=== PATIENT | female | born 1935 | race Caucasian/White ===

== ENCOUNTER 2020-05-22 13:29 | Inpatient (IN) ==
[2020-05-22] MEDS ORDERED: Ondansetron 4 MG/2 ML VIAL IVP PRN (17:02)
[2020-05-22] MEDS ORDERED: Ondansetron 4 MG/2 ML VIAL IVP STA (17:02)
[2020-05-22] MEDS ORDERED: Ondansetron 4 MG/2 ML VIAL ONE (17:04)
[2020-05-22] MEDS ORDERED: Famotidine 20 MG/2 ML VIAL IVP ONE (17:16)
[2020-05-22] MEDS ORDERED: methylPREDNISolone 125 MG/2 ML VIAL IVP ONE (17:17)
[2020-05-22] MEDS ORDERED: Dextrose Gel 15 GM/37.5 ML TUBE PO PRN ×2 (17:19)
[2020-05-22] MEDS ORDERED: D5% in Water 1,000 ML IVC PRN (17:19)
[2020-05-22] MEDS ORDERED: *HR* Dextrose 50 % in Water (Vial) 50 ML VIAL IVP PRN (17:19)
[2020-05-22] MEDS ORDERED: Naloxone 0.4 MG/ML INJ IVP PRN (17:52)
[2020-05-22] MEDS ORDERED: Prochlorperazine 10 MG/2 ML VIAL IVP ONE (17:52)
[2020-05-22] MEDS ORDERED: MethylPREDNISolone 40 MG/ML VIAL IVP SCH (18:00)
[2020-05-22] MEDS: Pantoprazole 40 MG VIAL IVP SCH (18:40)
[2020-05-22 18:41] LABS: Albumin 3.7 g/dL (3.5-5.7); Bilirubin,Total 1.2 mg/dL (0.3-1.0); Potassium 5.6 mEq/L (3.5-5.1); Troponin I 0.13 ng/mL (< 0.04)
[2020-05-22 18:54] LABS: Albumin/Globulin Ratio 1.1 (1.1-2.2); Bilirubin,Direct 0.5 mg/dL (0.0-0.2); Bilirubin,Indirect 0.7 mg/dL (0.0-1.0); Globulin 3.4 g/dL (2.4-3.5); Total Protein 7.1 g/dL (6.4-8.9)
[2020-05-22] MEDS ORDERED: Perflutren Lipid Microsphere 1.3 ML in 0.9 % Sodium Chloride 8.7 ML IVP PRN (19:44)
[2020-05-22] MEDS: Piperacillin/Tazobactam 3.375 GM in 0.9 % Sodium Chloride Mini Bag 100 ML IVPB SCH (20:01)
[2020-05-22 20:28] LABS: Basophils % 0.2 %; Hemoglobin 12.1 g/dL (11.5-15.4); Immature Granulocytes % 0.5 % (0-4); Lymphocytes # 0.6 K/mcL (0.6-4.6); Lymphocytes % 10.3 %; Mean Corpuscular HGB Conc 30.3 g/dL (31.6-35.5); Mean Corpuscular Hemoglobin 29.6 pg (28.0-33.3); Mean Corpuscular Volume 97.8 fL (83.0-100.0); Monocytes % 0.5 %; Neutrophils # 5.2 K/mcL (1.6-8.9); Nucleated Red Blood Cells 0.5 /100 WBC (0); Platelet Count 150 K/mcL (140-400); Red Blood Count 4.09 M/mcL (3.82-4.97); Red Cell Distribution Width 16.7 % (11.5-14.5); Segmented Neutrophils % 88.5 %; White Blood Count 5.9 K/mcL (4.3-11.1)
[2020-05-22 20:32] LABS: INR 1.5; Prothrombin Time 16.7 Seconds (9.4-12.1)
[2020-05-22] MEDS: Ipratropium/Albuterol Neb 3 ML IH SCH ×2 (20:39→23:08)
[2020-05-22 20:43] LABS: C-Reactive Protein 8 mg/L (Less than 10)
[2020-05-22] MEDS: Insulin LISPRO 300 UNITS/3 ML VIAL SUBQ SCH (20:52)
[2020-05-22 21:38] LABS: Lipase 15 Units/L (11-82)
[2020-05-23 00:58] LABS: Basophils % 0.2 %; Hematocrit 37.4 % (35.3-44.9); Hemoglobin 11.4 g/dL (11.5-15.4); Immature Granulocytes % 0.5 % (0-4); Lymphocytes # 0.7 K/mcL (0.6-4.6); Lymphocytes % 11.8 %; Mean Corpuscular HGB Conc 30.5 g/dL (31.6-35.5); Mean Corpuscular Hemoglobin 29.4 pg (28.0-33.3); Mean Corpuscular Volume 96.4 fL (83.0-100.0); Mean Platelet Volume 12.5 fL (9.4-12.4); Monocytes # 0.1 K/mcL (0.0-1.3); Monocytes % 1.3 %; Neutrophils # 4.8 K/mcL (1.6-8.9); Nucleated Red Blood Cells 0.5 /100 WBC (0); Platelet Count 196 K/mcL (140-400); Red Blood Count 3.88 M/mcL (3.82-4.97); Red Cell Distribution Width 16.7 % (11.5-14.5); Segmented Neutrophils % 86.2 %; White Blood Count 5.6 K/mcL (4.3-11.1)
[2020-05-23 01:01] LABS: INR 1.5; Prothrombin Time 17.5 Seconds (9.4-12.1)
[2020-05-23 01:16] LABS: Calcium 9.1 mg/dL (8.6-10.3); Potassium 5.6 mEq/L (3.5-5.1)
[2020-05-23 01:20] LABS: Bacteria,Urine Few per hpf (None-Few); Bilirubin,Urine Negative (Negative); Blood,Urine Small (Negative); Clarity,Urine Turbid (Clear); Color,Urine Yellow (Yellow); Glucose,Urine (UA) Normal (Normal); Hyaline Casts,Urine Many per lpf (None Seen); Ketones,Urine Negative (Negative); Leukocyte Esterase,Urine Negative (Negative); Mucus,Urine Few per lpf (None-Few); Nitrite,Urine Negative (Negative); PH,Urine 5.5 pH Units (5.0-8.0); Protein,Urine 70 mg/dL (Neg-Trace); RBC,Urine 15-30 per hpf (0-3); Specific Gravity,Urine 1.018 (1.010-1.025); Squamous Epithelial Cell,Urine Moderate per hpf (None-Few); Urobilinogen,Urine Normal (Normal)
[2020-05-23 01:26] LABS: Protein/Creatinine Ratio,Urine 1.07 mg/mg (0.00-0.20); Sodium, Urine 10.6 mEq/L
[2020-05-23] MEDS: Insulin LISPRO 300 UNITS/3 ML VIAL SUBQ SCH ×6 (02:15→22:27)
[2020-05-23] MEDS: Piperacillin/Tazobactam 3.375 GM in 0.9 % Sodium Chloride Mini Bag 100 ML IVPB SCH ×3 (02:15→22:36)
[2020-05-23] MEDS: Ipratropium/Albuterol Neb 3 ML IH SCH ×6 (03:46→23:36)
[2020-05-23] MEDS: MethylPREDNISolone 40 MG/ML VIAL IVP SCH ×2 (05:10→18:01)
[2020-05-23] MEDS: Pantoprazole 40 MG VIAL IVP SCH (07:43)
[2020-05-23 10:27] LABS: ABG Base Excess -5 mEq/L (-2 to 3); ABG HCO3 22 mEq/L (21-27); ABG Oxygen Saturation 95 % (95-98); ABG PCO2 49 mmHg (35-45); ABG PH 7.26 pH Units (7.32-7.45); ABG PO2 88 mmHg (85-104); ABG TCO2 24 mEq/L (20-26)
[2020-05-23 11:31] LABS: Uric Acid 11.6 mg/dL (2.3-7.6)
[2020-05-23 11:59] LABS: Hepatitis B Surface Antigen Nonreactive (Nonreactive)
[2020-05-23 12:28] LABS: Hepatitis C Virus Antibody Nonreactive (Nonreactive)
[2020-05-23 12:30] LABS: Hepatitis A Antibody IgM Nonreactive (Nonreactive); Hepatitis B Core IgM Nonreactive (Nonreactive)
[2020-05-23] MEDS ORDERED: *HR* Heparin 5,000 UNIT/ML VIAL IVP ONE (14:55)
[2020-05-23] MEDS ORDERED: *HR* Heparin 5,000 UNIT/ML VIAL IVP PRN ×2 (14:55)
[2020-05-23] MEDS: Heparin 25,000UNIT/250ML 1/2NS 25,000 UNIT/250 ML IV.SOLN IVC SCH (15:56)
[2020-05-23 16:25] LABS: Heparin anti-factor XA UFH 0.7 IU/mL (0.30-0.70); INR 1.4; Prothrombin Time 16.5 Seconds (9.4-12.1)
[2020-05-23 17:34] LABS: Hematocrit 33.9 % (35.3-44.9); Hemoglobin 10.8 g/dL (11.5-15.4); Mean Corpuscular HGB Conc 31.9 g/dL (31.6-35.5); Mean Corpuscular Hemoglobin 29.9 pg (28.0-33.3); Mean Corpuscular Volume 93.9 fL (83.0-100.0); Mean Platelet Volume 12.1 fL (9.4-12.4); Platelet Count 166 K/mcL (140-400); Red Blood Count 3.61 M/mcL (3.82-4.97); Red Cell Distribution Width 16.1 % (11.5-14.5); White Blood Count 19.1 K/mcL (4.3-11.1)
[2020-05-23 17:52] LABS: Lactate Dehydrogenase 209 Units/L (140-271); Total Protein 6.5 g/dL (6.4-8.9)
[2020-05-23] MEDS: Norepinephrine 4 MG/254 ML IV.SOLN IVC SCH (18:00)
[2020-05-23 18:39] LABS: Appearance of Pleural Fl Clear (Clear)
[2020-05-23 18:46] LABS: RBC,Pleural Fluid < 2000 RBC/mcL
[2020-05-23 19:11] LABS: Total Protein,Pleural Fluid 2.2 g/dL
[2020-05-23 20:38] LABS: Basophils,Pleural Fluid 0 %; Eosinophils,Pleural Fluid 0 %; Monocytes,Pleural Fluid 0 %
[2020-05-23 22:22] LABS: ABG Base Excess -6 mEq/L (-2 to 3); ABG HCO3 19 mEq/L (21-27); ABG Oxygen Saturation 99 % (95-98); ABG PCO2 36 mmHg (35-45); ABG PH 7.34 pH Units (7.32-7.45); ABG PO2 121 mmHg (85-104); ABG TCO2 20 mEq/L (20-26); Blood Gas Modality OXY MASK
[2020-05-23 23:29] LABS: Calcium 8.8 mg/dL (8.6-10.3); Potassium 6.2 mEq/L (3.5-5.1)
[2020-05-24] MEDS ORDERED: Albumin Human 5% 12.5 GM/250 ML IV.SOLN IVPB ONE (00:07)
[2020-05-24] MEDS: Insulin LISPRO 300 UNITS/3 ML VIAL SUBQ SCH ×6 (00:58→20:28)
[2020-05-24] MEDS: Norepinephrine 4 MG/254 ML IV.SOLN IVC SCH ×2 (01:26→07:27)
[2020-05-24] MEDS ORDERED: Furosemide 40 MG/4 ML VIAL IVP ONE (02:51)
[2020-05-24] MEDS: MethylPREDNISolone 40 MG/ML VIAL IVP SCH ×2 (03:44→17:02)
[2020-05-24] MEDS: Ipratropium/Albuterol Neb 3 ML IH SCH ×6 (03:48→23:23)
[2020-05-24 06:16] LABS: Basophils % 0.1 %; Hematocrit 31.6 % (35.3-44.9); Hemoglobin 10.2 g/dL (11.5-15.4); Immature Granulocytes % 0.4 % (0-4); Lymphocytes # 0.9 K/mcL (0.6-4.6); Lymphocytes % 5.6 %; Mean Corpuscular HGB Conc 32.3 g/dL (31.6-35.5); Mean Corpuscular Hemoglobin 29.7 pg (28.0-33.3); Mean Corpuscular Volume 92.1 fL (83.0-100.0); Mean Platelet Volume 12.2 fL (9.4-12.4); Monocytes # 0.7 K/mcL (0.0-1.3); Monocytes % 3.9 %; Neutrophils # 14.8 K/mcL (1.6-8.9); Nucleated Red Blood Cells 0.2 /100 WBC (0); Platelet Count 168 K/mcL (140-400); Red Blood Count 3.43 M/mcL (3.82-4.97); Red Cell Distribution Width 16.2 % (11.5-14.5); White Blood Count 16.5 K/mcL (4.3-11.1)
[2020-05-24 06:34] LABS: Calcium 8.8 mg/dL (8.6-10.3); Potassium 6.1 mEq/L (3.5-5.1)
[2020-05-24] MEDS: Piperacillin/Tazobactam 3.375 GM in 0.9 % Sodium Chloride Mini Bag 100 ML IVPB SCH ×2 (07:33→20:21)
[2020-05-24] MEDS: Pantoprazole 40 MG VIAL IVP SCH (07:33)
[2020-05-24] MEDS: Heparin 25,000UNIT/250ML 1/2NS 25,000 UNIT/250 ML IV.SOLN IVC SCH (07:41)
[2020-05-24] MEDS: Albumin Human 5% 12.5 GM/250 ML IV.SOLN IVC SCH ×2 (11:22→14:01)
[2020-05-24] MEDS ORDERED: Lidocaine -MPF 1% 5 ML AMPUL INFILT ONE (11:46)
[2020-05-24] MEDS: SODIUM ZIRCONIUM CYCLOSILICATE 5 GM POWD.PACK PO SCH (16:52)
[2020-05-25] MEDS: Insulin LISPRO 300 UNITS/3 ML VIAL SUBQ SCH ×7 (00:58→22:50)
[2020-05-25 03:39] LABS: Hematocrit 30.6 % (35.3-44.9); Hemoglobin 9.9 g/dL (11.5-15.4); Immature Granulocytes % 0.4 % (0-4); Lymphocytes # 0.7 K/mcL (0.6-4.6); Lymphocytes % 6.7 %; Mean Corpuscular HGB Conc 32.4 g/dL (31.6-35.5); Mean Corpuscular Hemoglobin 29.7 pg (28.0-33.3); Mean Corpuscular Volume 91.9 fL (83.0-100.0); Mean Platelet Volume 12.7 fL (9.4-12.4); Monocytes # 0.4 K/mcL (0.0-1.3); Monocytes % 4.3 %; Neutrophils # 8.9 K/mcL (1.6-8.9); Nucleated Red Blood Cells 0.2 /100 WBC (0); Platelet Count 113 K/mcL (140-400); Red Blood Count 3.33 M/mcL (3.82-4.97); Red Cell Distribution Width 16.5 % (11.5-14.5); Segmented Neutrophils % 88.6 %; White Blood Count 10.1 K/mcL (4.3-11.1)
[2020-05-25] MEDS: Ipratropium/Albuterol Neb 3 ML IH SCH ×6 (03:45→23:12)
[2020-05-25 04:00] LABS: Calcium 8.9 mg/dL (8.6-10.3); Potassium 5.8 mEq/L (3.5-5.1)
[2020-05-25 04:15] LABS: Troponin I 0.17 ng/mL (< 0.04)
[2020-05-25] MEDS: MethylPREDNISolone 40 MG/ML VIAL IVP SCH (05:22)
[2020-05-25] MEDS: SODIUM ZIRCONIUM CYCLOSILICATE 5 GM POWD.PACK PO SCH (08:20)
[2020-05-25] MEDS: Pantoprazole 40 MG VIAL IVP SCH (08:21)
[2020-05-25] MEDS: Apixaban 2.5 MG TABLET PO SCH (17:50)
[2020-05-25] MEDS ORDERED: *HR* Heparin 5,000 UNIT/ML VIAL SQ SCH (22:00)
[2020-05-26] MEDS: Insulin LISPRO 300 UNITS/3 ML VIAL SUBQ SCH ×5 (03:18→14:59)
[2020-05-26] MEDS: Ipratropium/Albuterol Neb 3 ML IH SCH ×6 (03:39→23:44)
[2020-05-26] MEDS: Apixaban 2.5 MG TABLET PO SCH (05:15)
[2020-05-26 09:03] LABS: Potassium 5.4 mEq/L (3.5-5.1)
[2020-05-26] MEDS: Pantoprazole 40 MG VIAL IVP SCH (09:18)
[2020-05-26] MEDS: SODIUM ZIRCONIUM CYCLOSILICATE 5 GM POWD.PACK PO SCH (09:19)
[2020-05-26 16:41] LABS: Basophils % 0.1 %; Hematocrit 31.6 % (35.3-44.9); Immature Granulocytes % 0.4 % (0-4); Lymphocytes # 0.9 K/mcL (0.6-4.6); Lymphocytes % 6.1 %; Mean Corpuscular HGB Conc 31.6 g/dL (31.6-35.5); Mean Corpuscular Hemoglobin 29.2 pg (28.0-33.3); Mean Corpuscular Volume 92.4 fL (83.0-100.0); Mean Platelet Volume 12.2 fL (9.4-12.4); Monocytes # 1.2 K/mcL (0.0-1.3); Monocytes % 8.1 %; Neutrophils # 12.1 K/mcL (1.6-8.9); Nucleated Red Blood Cells 0.5 /100 WBC (0); Platelet Count 112 K/mcL (140-400); Red Blood Count 3.42 M/mcL (3.82-4.97); Red Cell Distribution Width 16.5 % (11.5-14.5); Segmented Neutrophils % 85.3 %; White Blood Count 14.2 K/mcL (4.3-11.1)
[2020-05-26] MEDS ORDERED: Morphine Sulfate Oral CONC 10 MG/0.5 ML ORAL.SYG SL PRN (16:41)
[2020-05-26] MEDS ORDERED: 0.9 % Sodium Chloride 250 ML ONE (17:40)
[2020-05-27] MEDS: Insulin LISPRO 300 UNITS/3 ML VIAL SUBQ SCH ×5 (00:42→17:29)
[2020-05-27] MEDS: Ipratropium/Albuterol Neb 3 ML IH SCH ×6 (03:15→23:45)
[2020-05-27 06:31] LABS: Basophils % 0.1 %; Eosinophils % 0.2 %; Hematocrit 31.8 % (35.3-44.9); Hemoglobin 10.3 g/dL (11.5-15.4); Immature Granulocytes % 0.4 % (0-4); Lymphocytes % 7.8 %; Mean Corpuscular HGB Conc 32.4 g/dL (31.6-35.5); Mean Corpuscular Hemoglobin 29.7 pg (28.0-33.3); Mean Corpuscular Volume 91.6 fL (83.0-100.0); Mean Platelet Volume 12.5 fL (9.4-12.4); Monocytes % 7.7 %; Neutrophils # 10.6 K/mcL (1.6-8.9); Nucleated Red Blood Cells 0.5 /100 WBC (0); Platelet Count 102 K/mcL (140-400); Red Blood Count 3.47 M/mcL (3.82-4.97); Red Cell Distribution Width 16.3 % (11.5-14.5); Segmented Neutrophils % 83.8 %; White Blood Count 12.7 K/mcL (4.3-11.1)
[2020-05-27 06:34] LABS: Calcium 8.4 mg/dL (8.6-10.3)
[2020-05-27] MEDS: Apixaban 2.5 MG TABLET PO SCH ×3 (06:50→17:30)
[2020-05-27] MEDS: Pantoprazole 40 MG VIAL IVP SCH (09:08)
[2020-05-27] MEDS: SODIUM ZIRCONIUM CYCLOSILICATE 5 GM POWD.PACK PO SCH (09:08)
[2020-05-28 03:26] LABS: Blood Urea Nitrogen > 130 mg/dL (8-23); Calcium 8.3 mg/dL (8.6-10.3); Carbon Dioxide 20 mEq/L (23-29); Chloride 94 mEq/L (98-107); Glucose 214 mg/dL (70-105); Potassium 4.9 mEq/L (3.5-5.1); Sodium 128 mEq/L (136-145); eGFR For African Americans 12 (> 60); eGFR For Non-African Americans 10 (> 60)
[2020-05-28] MEDS: Ipratropium/Albuterol Neb 3 ML IH SCH ×6 (03:44→23:40)
[2020-05-28] MEDS: Apixaban 2.5 MG TABLET PO SCH ×2 (05:09→17:07)
[2020-05-28] MEDS: SODIUM ZIRCONIUM CYCLOSILICATE 5 GM POWD.PACK PO SCH (08:01)
[2020-05-29 03:38] LABS: VBG HCO3 21 mEq/L (21-27); VBG PCO2 48 mmHg (41-51); VBG PH 7.25 pH Units (7.32-7.42); VBG PO2 104 mmHg (25-50)
[2020-05-29] MEDS: Ipratropium/Albuterol Neb 3 ML IH SCH ×4 (03:49→15:30)
[2020-05-29 03:59] LABS: Magnesium 2.9 mg/dL (1.6-2.6); Phosphorous 8.1 mg/dL (2.7-4.5)
[2020-05-29 04:00] LABS: Blood Urea Nitrogen > 130 mg/dL (8-23); Calcium 8.1 mg/dL (8.6-10.3); Carbon Dioxide 19 mEq/L (23-29); Chloride 95 mEq/L (98-107); Glucose 289 mg/dL (70-105); Sodium 129 mEq/L (136-145); eGFR For African Americans 10 (> 60); eGFR For Non-African Americans 8 (> 60)
[2020-05-29] MEDS: Apixaban 2.5 MG TABLET PO SCH (05:45)
[2020-05-29] MEDS: SODIUM ZIRCONIUM CYCLOSILICATE 5 GM POWD.PACK PO SCH (08:46)
[2020-05-29 15:41] VITALS: BP 101/52
== END 2020-05-29 15:34 | disposition hospice, inpatient (51) | DRG 291 ==
LOC: 2NNU → SUATTDRO 21:29 → 2ANU 05-26 17:22
PROVIDERS: ADMIT Internal Medicine; ATTEND Internal Medicine

== ENCOUNTER 2020-05-29 11:20 | Inpatient (IN) ==
[2020-05-29] MEDS ORDERED: Ondansetron 4 MG/2 ML VIAL IVP PRN (17:19)
[2020-05-29] MEDS ORDERED: *HR* OxyCODONE Immed Rel 5 MG TABLET PO PRN (17:24)
[2020-05-29] MEDS: Insulin LISPRO 300 UNITS/3 ML VIAL SUBQ SCH (18:35)
[2020-05-29] MEDS: *HR* LORazepam Oral Conc 2 MG/ML PO PRN (20:06)
[2020-05-30] MEDS ORDERED: *HR* FentaNYL (PF) 100 MCG/2 ML VIAL IVP PRN (09:33)
[2020-05-30] MEDS ORDERED: Ipratropium/Albuterol Neb 3 ML IH ONE (09:33)
[2020-05-30] MEDS ORDERED: Scopolamine Patch 1.5 MG PATCH.TD72 TD SCH (09:45)
[2020-05-30] MEDS: Insulin LISPRO 300 UNITS/3 ML VIAL SUBQ SCH ×3 (10:42→16:14)
[2020-05-30] MEDS: Atropine 1% Opth Drops 100 DROP/5 ML BOTTLE SL PRN ×3 (11:54→20:49)
[2020-05-30] MEDS: *HR* LORazepam Oral Conc 2 MG/ML PO PRN (15:17)
[2020-05-31] MEDS: Atropine 1% Opth Drops 100 DROP/5 ML BOTTLE SL PRN ×4 (02:16→16:00)
[2020-05-31 08:19] VITALS: BP 125/62
[2020-05-31] MEDS: Insulin LISPRO 300 UNITS/3 ML VIAL SUBQ SCH ×2 (08:20→11:28)
== END 2020-05-31 18:47 | disposition expired | DRG 951 ==
LOC: 2ANU 15:38
PROVIDERS: ADMIT Internal Medicine Hospice and Palliative Medicine; ATTEND Internal Medicine Hospice and Palliative Medicine